=== PATIENT | female | born 1960 | race Caucasian/White ===

== ENCOUNTER → 2017-03-25 | Outpatient (REF) ==
[~2017-03-25] MED LIST: AMBIEN 10MG10 MG PO; CELEXA40 MG PO; LEVAQUIN 250MG250 MG PO; NORCO 325 MG-51 TAB PO; NORCO 325 MG-7.1 TAB PO; TOPROL XL25 MG PO; ZOFRAN4 MG PO
[2017-03-25 19:55] LABS: THYROID STIMULATING HORMONE 1.95 uIU/mL (0.465-4.680)
== END ==
LOC: ZLAB.WCH 18:38
PROVIDERS: Nurse Practitioner Family
DX: Z01.89 Encounter for other specified special examinations (principal)

== ENCOUNTER → 2018-08-29 | Outpatient (REF) ==
[2018-08-29 17:22] LABS: THYROID STIMULATING HORMONE 2.36 uIU/mL (0.465-4.680)
== END ==
LOC: ZLAB.WCH 16:27
PROVIDERS: Physician Assistant
DX: Z01.89 Encounter for other specified special examinations (principal)

== ENCOUNTER 2020-11-15 07:24 | Inpatient (IN) | payer BC ==
[~2020-11-15 07:24] MED LIST changes: +ASPIRIN 81M81 MG/TA2 PO; +BRILINTA90 MG PO; +DETROL LA4 PO; +DITROPAN XL 5MG5 M1 PO; +LIPITOR20 MG PO; +NITROSTAT0.4 MG/TAB SL; +WELLBUTRIN XL150 MG PO
[2020-11-15 08:16] VITALS: BP 119/63; PULSE 64; TEMP 97.9
[2020-11-15 08:28] LABS: BASO % 0.9 % (0.0-2.0); EOS # 0.1 (0.0-0.7); EOS % 3.4 % (0-4.0); GRAN # 1.9 (1.4-6.5); GRAN % 53.4 % (42.2-75.2); HEMATOCRIT 37.2 % (37.0-47.0); HEMOGLOBIN 12.3 g/dl (12.5-16.0); LYMPH # 1.1 (1.2-3.4); LYMPH % 32.8 % (20.0-51.0); MEAN CELL VOLUME 92 fl (80.0-100.0); MEAN CORPUSCULAR HEMOGLOBIN 30 pg (27.0-31.0); MEAN CORPUSCULAR HGB CONC 33 g/dl (33.0-37.0); MEAN PLATELET VOLUME 11.6 fl (7.4-10.4); MONO # 0.3 (0.1-0.6); MONO % 9.2 % (1.7-9.3); PLATELET COUNT 208 K/mm3 (130-400); RED BLOOD COUNT 4.05 M/mm3 (4.10-5.30); REDCELL DISTRIBUTION WIDTH-CV 13.7 % (11.5-14.5)
[2020-11-15 08:36] LABS: INR 1.3 (0.8-3.0); PROTHROMBIN TIME 14.6 SECONDS (9.7-12.8)
[2020-11-15] MEDS ORDERED: ELIQUIS 5MG PO (08:38)
[2020-11-15 08:39] LABS: ALBUMIN 4.1 gm/dL (3.5-5.0); BILIRUBIN,TOTAL 0.4 mg/dL (0.0-1.0); CALCIUM 9.2 mg/dL (8.4-10.2); CREATININE, serum 0.8 (0.52-1.25); POTASSIUM 4.2 mmol/L (3.4-5.0); TOTAL PROTEIN 6.8 gm/dL (6.4-8.2)
--- NOTE | 2020-11-15 09:00 | NUR ---
Admission assessment completed, alert/oriented, vital signs stable, denies pain or discomfort, admitted for Sotalol initiation, RT notified of EKG order, Sotalol order sent to pharmacy, home meds/allergies/pharmacy reivewed and updated with patient, IV started to left hand 22G, labs drawn, placed patient on telemetry, and notifed physician of her arrival, she denies needs
--- NOTE | 2020-11-15 09:51 | NUR ---
GARFIELD met with the patient and her friend, Purvi Syed (ph#[phone]), to discuss discharge plan. The patient lives in [place] with Purvi. She reports independence with ADLs and does not have any DME. The patient's primary care provider is Dionne Johnson PA-C and she receives her medications from [facility]. She reports no difficulties obtaining her meds. The patient's DPOA-HC is in EMR and it designates Purvi. The patient plans to return home with Purvi upon discharge. No additional needs at this time.
[2020-11-15 11:44] VITALS: BP 129/61; PULSE 60; TEMP 97.7
--- NOTE | 2020-11-15 11:47 | NUR ---
First visit from the battery assembler plastic. No needs right now.
[2020-11-15 15:47] VITALS: BP 106/61; PULSE 58; TEMP 97.9
[2020-11-15 19:07] VITALS: BP 117/54; PULSE 68; TEMP 97.8
--- NOTE | 2020-11-15 20:30 | NUR ---
Initial shift assessment done-denies SOB, denies any chest pain,, HS snack given, watching some TV- no requests, Sotalol given as ordered, QTC 429, VSS, Tele on SR rate 67,,
[2020-11-16] VITALS (7 sets, daily range): BP systolic 100–123; BP diastolic 50–78; PULSE 59–69; TEMP 97.7–98.4
--- NOTE | 2020-11-16 06:07 | NUR ---
Quiet night-- slept well, no chest pain/palpitaions, Tele on, SR,,VSS
[2020-11-16 07:41] LABS: BASO % 0.6 % (0.0-2.0); EOS # 0.1 (0.0-0.7); EOS % 3.9 % (0-4.0); GRAN # 1.9 (1.4-6.5); GRAN % 52.8 % (42.2-75.2); HEMOGLOBIN 13.2 g/dl (12.5-16.0); LYMPH # 1.2 (1.2-3.4); LYMPH % 33.5 % (20.0-51.0); MEAN CELL VOLUME 92 fl (80.0-100.0); MEAN CORPUSCULAR HEMOGLOBIN 30 pg (27.0-31.0); MEAN CORPUSCULAR HGB CONC 33 g/dl (33.0-37.0); MEAN PLATELET VOLUME 11.7 fl (7.4-10.4); MONO # 0.3 (0.1-0.6); MONO % 8.9 % (1.7-9.3); PLATELET COUNT 213 K/mm3 (130-400); RED BLOOD COUNT 4.35 M/mm3 (4.10-5.30); REDCELL DISTRIBUTION WIDTH-CV 13.6 % (11.5-14.5)
[2020-11-16 07:47] LABS: INR 1.2 (0.8-3.0); PROTHROMBIN TIME 13.1 SECONDS (9.7-12.8)
[2020-11-16 07:59] LABS: CALCIUM 9.4 mg/dL (8.4-10.2); CREATININE, serum 0.87 (0.52-1.25); POTASSIUM 4.1 mmol/L (3.4-5.0)
--- NOTE | 2020-11-16 08:49 | NUR ---
Pt assessment complete. Pt is sitting up in bed upon entry, she is A/O x4. Her breathing is even and unlabored on RA. Pt denies SOB. She denies any dizziness. No chest pain/palpitations. She denies any pain. POC discussed with patient who verbalizes understanding. No needs at this time. Call light within reach.
--- NOTE | 2020-11-16 18:41 | NUR ---
Uneventful day. Denied any pain SOB or dizziness. Rested through the day. No needs at this time.
--- NOTE | 2020-11-16 19:50 | NUR ---
Patient assessed at this time. Alert and oriented x 4, and able to make needs known. Denies having pain and discomfort at this time. Peripheral INT to left hand. Site flushed and is without redness, warmth, swelling, and pain. Denies having SOB and dyspnea. LS CTA. Respirations even and unlabored. HRR. Telemetry in place. Capillary refill less than 3 seconds. Non-tenting skin turgor. BSAx4. Abdomen soft and non-tender. No edema. Voices no questions, needs, or concerns at this time. Resting in bed with call light within reach.
[2020-11-17 04:49] VITALS: BP 99/59; PULSE 79; TEMP 98.3
--- NOTE | 2020-11-17 06:08 | NUR ---
EKG this morning showing A-fib RVR, with HR in the 120s. Telemetry showing HR int he 120-130s. Patient reports she has been feeling palpitations, but denies pain and dizzyness. BP 99/62. Called Dr. Donovan at 0510. Due to BP, new order for NS at 150 ml/hr, for 500 mls. Started per orders. At 0605, BP 112/72. Continues to be in A-fib 120-130s on telemetry. Called Dr. Donovan for update. Ok to give morning Sotalol now. Given at this time.
[2020-11-17 06:51] LABS: BASO % 0.7 % (0.0-2.0); EOS # 0.1 (0.0-0.7); EOS % 3.3 % (0-4.0); GRAN # 2.1 (1.4-6.5); GRAN % 49.9 % (42.2-75.2); HEMOGLOBIN 14.3 g/dl (12.5-16.0); LYMPH # 1.6 (1.2-3.4); LYMPH % 37.2 % (20.0-51.0); MEAN CELL VOLUME 92 fl (80.0-100.0); MEAN CORPUSCULAR HEMOGLOBIN 30 pg (27.0-31.0); MEAN CORPUSCULAR HGB CONC 33 g/dl (33.0-37.0); MEAN PLATELET VOLUME 11.7 fl (7.4-10.4); MONO # 0.4 (0.1-0.6); MONO % 8.9 % (1.7-9.3); PLATELET COUNT 235 K/mm3 (130-400); RED BLOOD COUNT 4.76 M/mm3 (4.10-5.30); REDCELL DISTRIBUTION WIDTH-CV 13.5 % (11.5-14.5)
[2020-11-17 07:05] LABS: CALCIUM 9.3 mg/dL (8.4-10.2); CREATININE, serum 0.89 (0.52-1.25); MAGNESIUM 2.1 mg/dL (1.6-2.3)
[2020-11-17 07:14] LABS: INR 1.1 (0.8-3.0); PROTHROMBIN TIME 12.6 SECONDS (9.7-12.8)
[2020-11-17 07:18] VITALS: BP 108/71; PULSE 124; TEMP 98.1
--- NOTE | 2020-11-17 08:00 | NUR ---
ERIC Santiago w/ called ordering pt NPO and EKG to be done. [employer] PRESS OPERATOR called and notified EKG needed.
--- NOTE | 2020-11-17 08:20 | NUR ---
Shift assessment complete. Pt sitting up in bed w/family at bedside. A&Ox4. Heart rhythm remains Afib per tele w/rate in 120s. Denies chest pain or SOA but does report feeling "heart racing." Lungs CTA. Denies pain. NS running at 150 ml/hr w/20 minutes left at this time. Left hand INT w/o s/s complication. Call light in reach.
--- NOTE | 2020-11-17 09:49 | NUR ---
CRITICAL CARE REGISTERED NURSE called again about EKG.
[2020-11-17 11:26] VITALS: BP 97/54; PULSE 133; TEMP 98
--- NOTE | 2020-11-17 12:55 | NUR ---
Pt taken down for CV/loop recorder placement at this time.
[2020-11-17] MEDS ORDERED: BETAPACE AF160 MG PO (13:37)
--- NOTE | 2020-11-17 14:00 | NUR ---
Pt back to room at this time.
--- NOTE | 2020-11-17 14:27 | NUR ---
Pt taken to express unit for scheduled cardioversion and loop recorder implant. Upon arrival pt was placed on a nuclear monitoring technician and 130 bpm atrial fibrillation. Pt was prepped and then spontaneously converted to sinus rhythm in the 60's. notified and came to assess pt. Cardioversion was cancelled and loop recorder implanted. Pt had a vagal response and was placed supine and IVF bolus of 250ml administered. Pt recovered well. Wound site covered with dry gauze dressing and paper tape. Bedside report to RN on medical unit. Home monitor paired and all questions answered.
--- NOTE | 2020-11-17 14:50 | NUR ---
Discharge teaching discussed w/pt and friend. All questions answered. INT to left hand removed w/o s/s complication. Pt finishing lunch and will then be escorted out.
--- NOTE | 2020-11-17 15:10 | NUR ---
Pt escorted out at this time, accompanied by friend. All belongings in tow.
== END 2020-11-17 15:10 | disposition home or self-care (01) | DRG 262 ==
LOC: MEDICAL 07:24
PROVIDERS: ADMIT Internal Medicine Cardiovascular Disease
PROC: 0JH632Z Insertion of Monitoring Device into Chest Subcutaneous Tissue and Fascia, Percutaneous Approach (ICD-10-PCS; principal; 2020-11-17)
DX: I48.91 Unspecified atrial fibrillation (principal); I10 Essential (primary) hypertension; E78.5 Hyperlipidemia, unspecified; I25.10 Atherosclerotic heart disease of native coronary artery without angina pectoris; Z95.5 Presence of coronary angioplasty implant and graft; Z79.01 Long term (current) use of anticoagulants
CPT/HCPCS: C1764; J2405; J7040